=== PATIENT | male | born 1955 | race Caucasian/White ===

== ENCOUNTER 2021-06-11 02:35 | Observation (INO) | payer MEDICAID ==
[~2021-06-11] VITALS: Ht 182.9 cm; Wt 108.4 kg
[2021-06-11 02:42] VITALS: BP 138/78
--- NOTE | 2021-06-11 02:42 | NUR ---
COLE CHAPPELL VIA GURNEY TO BED 05.
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
[2021-06-11] MEDS ORDERED: KETOROLAC 30 MG/ML VIAL IVP ONE (02:50)
[2021-06-11] MEDS ORDERED: VANCOMYCIN 1,000 MG in DEXTROSE 5% 250 ML IV ONE (02:50)
[2021-06-11] MEDS ORDERED: NACL 0.9% 1,000 ML IV ONE (02:50)
--- NOTE | 2021-06-11 03:11 | NUR ---
JENNIFER SWAB COLLECTED FROM PT NARES AND HANDED TO EVELYN FROM LAB.
[2021-06-11 03:18] LABS: BASOPHILS # (AUTO) 0.1 K/uL (0.00-0.22); BASOPHILS % (AUTO) 1.1 % (0.0-2.0); EOSINOPHILS # (AUTO) 0.1 K/uL (0-0.4); EOSINOPHILS % (AUTO) 2.2 % (0.0-4.0); HEMATOCRIT 27.8 % (36-52); HEMOGLOBIN 9.7 g/dL (12.0-18.0); LYMPHOCYTES # (AUTO) 1.3 K/uL (2.0-11.5); LYMPHOCYTES % (AUTO) 24.3 % (20.5-51.1); MEAN CORPUSCULAR HEMOGLOBIN 38 pg (27-31); MEAN CORPUSCULAR HGB CONC 35 g/dL (33-37); MEAN CORPUSCULAR VOLUME 110.2 fL (80-94); MONOCYTES # (AUTO) 0.7 K/uL (0.8-1.0); MONOCYTES % (AUTO) 12.2 % (1.7-9.3); NEUTROPHILS # (AUTO) 3.3 K/uL (1.8-7.7); NEUTROPHILS % (AUTO) 60.2 % (42.2-75.2); PLATELET COUNT (AUTO) 129 K/uL (140-450); RED BLOOD CELL COUNT(AUTO) 2.53 MIL/uL (4.20-6.10); RED CELL DISTRIBUTION WIDTH 13.9 % (11.6-13.7); WHITE BLOOD COUNT (AUTO) 5.5 K/uL (4.8-10.8)
[2021-06-11] MEDS ORDERED: VANCOMYCIN 1,000 MG VIAL ONE (03:22)
[2021-06-11 03:35] LABS: ANION GAP 12.5 (8-16); CARBON DIOXIDE 27.7 mmol/L (21-32); CREATININE 1.2 mg/dL (0.6-1.3); POTASSIUM 4.2 mmol/L (3.5-5.1)
[2021-06-11 03:41] LABS: ALBUMIN 2.3 g/dL (3.4-5.0); TOTAL BILIRUBIN 2.6 mg/dL (0.0-1.0)
--- NOTE | 2021-06-11 04:45 | NUR ---
PT APPEARS TO BE RESTING W EYES CLOSED IN SUPINE POSITION. BREATHING EVEN AND UNLABORED. CONNECTED TO MONITOR. W VSS.
--- NOTE | 2021-06-11 04:50 | NUR ---
PT C/O R LEG PAIN. PAPID MADE AWARE.
--- NOTE | 2021-06-11 04:57 | NUR ---
David gomez in ED - 06/11/21 at 0458 by IRWIN pt ate crackers and drank juice. pt tolerated PO challenge well. Dr. Pratt made aware.
[2021-06-11] MEDS ORDERED: MORPHINE SULFATE 4 MG/ML SYR IVP ONE (05:05)
--- NOTE | 2021-06-11 06:37 | NUR ---
PT APPEARS TO BE RESTING W EYES CLOSED IN SUPINE POSITION. BREATHING EVEN AND UNLABORED. CONNECTED TO MONITOR. W VSS.
--- NOTE | 2021-06-11 07:18 | NUR ---
Pt report given to LIUDMILA STRATTON. Transfer of care at this time.
--- NOTE | 2021-06-11 07:19 | NUR ---
REPORT RECEIVED FROM COLLIN MORALES FOR PATIENT CONTINUITY OF CARE.
[2021-06-11] MEDS ORDERED: TOMOMETER 1 DEV DEV MC ONE (07:25)
--- NOTE | 2021-06-11 07:35 | NUR ---
REPOSITIONED PATIENT AND PROVIDED WITH WATER AT BEDSIDE, ALL PATIENT NEEDS MET AT THIS TIME. SAFETY PRECAUTIONS CONTINUED IN PLACE. WILL CONTINUE TO MONITOR.
--- NOTE | 2021-06-11 09:03 | NUR ---
PATIENT RESTING IN BED, RESPIRATIONS EVEN AND UNLABORED. SAFETY MEASURES CONTINUED IN PLACE, WILL CONTINUE TO MONITOR.
[2021-06-11] MEDS ORDERED: ONDANSETRON 4 MG/2 ML VIAL IVP PRN (09:15)
[2021-06-11] MEDS ORDERED: VANCOMYCIN PER PHARMACY MC PRN (09:15)
[2021-06-11] MEDS ORDERED: ACETAMINOPHEN 325 MG TAB PO PRN (09:15)
[2021-06-11] MEDS: NACL 0.9% 1,000 ML IV SCH ×2 (09:15→19:36)
[2021-06-11] MEDS ORDERED: cefTRIAXone 1,000 MG VIAL ONE (10:12)
--- NOTE | 2021-06-11 13:21 | NUR ---
Patient will be admitted to care of DR. SON. Admited to Med/Surg. Will go to room 111-B. Belongings list completed. Report to LISANDRA.
--- NOTE | 2021-06-11 13:34 | NUR ---
Patient noted to have existing wounds upon arrival to ER. Photos taken of wound and placed in chart. Physician informed.
--- NOTE | 2021-06-11 13:35 | NUR ---
Chart checked and completed. The patient's care was reviewed and supervised by Eda Sosa RN.
[2021-06-11] MEDS: VANCOMYCIN 750 MG in DEXTROSE 5% 250 ML IV SCH (15:53)
[2021-06-11] MEDS: MORPHINE SULFATE 4 MG/ML SYR IVP PRN ×2 (15:54→23:23)
--- NOTE | 2021-06-11 15:54 | NUR ---
PT WAS GIVEN MORPHINE FOR PAIN IN THE RIGHT LE AT A SCALE OF 9/10. BP WAS STABLE PRIOR TO ADMINISTRATION OF MEDICATION. WILL CONTINUE TO MONITOR.
[2021-06-11 16:00] VITALS: BP 122/66
--- NOTE | 2021-06-11 16:54 | NUR ---
PT ARRIVED VIA GURNEY AND WAS PLACED IN BED. PT IS UNABLE TO AMBULATE WITH STEADY GAIT. A&OX4. ON RA WITH BREATHING UNLABORED. SWELLING NOTED ON BILATERAL LOWER EXTREMITIES AND REDDENED WITH SCABS ON THE RIGHT LE. MED SURG PT. CONTINENT OF THE BOWEL AND BLADDER WITH URINAL AT BEDSIDE. IV IS INTACT AND IN PLACE. PT IS STABLE. VS ARE STABLE. Addendum: 06/11/21 at 1657 by Allison Chaney RN THIS NOTE WAS MEANT FOR [id number] NOT 1655.
--- NOTE | 2021-06-11 18:00 | NUR ---
PT IS ASLEEP. NO DISTRESS NOTED. IN SEMI FOWLERS POSITION WITH BREATHING UNLABORED. NO PAIN NOTED. IV IS PATENT AND INTACT. WILL CONTINUE TO MONITOR.
--- NOTE | 2021-06-11 19:12 | NUR ---
ENDORSED PT TO YARD SWITCH OPERATOR NURSE FOR CONTINUITY OF CARE. PT IS STABLE. PLAN OF CARE DISCUSSED.
[2021-06-11 20:03] VITALS: BP 105/55
[2021-06-11 23:24] VITALS: BP 126/91
[2021-06-12] MEDS: VANCOMYCIN 750 MG in DEXTROSE 5% 250 ML IV SCH ×2 (02:39→15:21)
[2021-06-12] MEDS: NACL 0.9% 1,000 ML IV SCH (05:08)
--- NOTE | 2021-06-12 07:05 | NUR ---
HANDOFF TO COLLIN FRY. DONTAE SERRANO RN
[2021-06-12 07:11] LABS: ANION GAP 9.8 (8-16); CARBON DIOXIDE 27.8 mmol/L (21-32); CREATININE 1.1 mg/dL (0.6-1.3); POTASSIUM 4.6 mmol/L (3.5-5.1)
--- NOTE | 2021-06-12 07:20 | NUR ---
RECEIVED BEDSIDE REPORT FROM ASPHALT MIXING MACHINE OPERATOR NURSE FOR CONTINUITY OF CARE. PT IS AWAKE AND ALERT. A&OX4. ON RA WITH BREATHING UNLABORED. CONTINENT OF THE BOWEL AND BLADDER. IV IS INTACT IN THE RIGHT AC 20 GAUGE INFUSING FLUIDS ORDERED. SKIN IS WARM AND DRY. SCABS ON THE RIGHT LOWER EXTREMITY, REDDENED AND SWOLLEN. PT IS STABLE. PLAN OF CARE DISCUSSED.
[2021-06-12 07:30] LABS: BASOPHILS % (AUTO) 0.8 % (0.0-2.0); EOSINOPHILS # (AUTO) 0.1 K/uL (0-0.4); EOSINOPHILS % (AUTO) 5.2 % (0.0-4.0); HEMATOCRIT 25.2 % (36-52); HEMOGLOBIN 8.7 g/dL (12.0-18.0); LYMPHOCYTES # (AUTO) 0.5 K/uL (2.0-11.5); LYMPHOCYTES % (AUTO) 24.3 % (20.5-51.1); MEAN CORPUSCULAR HEMOGLOBIN 38 pg (27-31); MEAN CORPUSCULAR HGB CONC 34 g/dL (33-37); MEAN CORPUSCULAR VOLUME 111.3 fL (80-94); MONOCYTES # (AUTO) 0.1 K/uL (0.8-1.0); MONOCYTES % (AUTO) 3.6 % (1.7-9.3); NEUTROPHILS # (AUTO) 1.2 K/uL (1.8-7.7); NEUTROPHILS % (AUTO) 66.1 % (42.2-75.2); PLATELET COUNT (AUTO) 79 K/uL (140-450); RED BLOOD CELL COUNT(AUTO) 2.27 MIL/uL (4.20-6.10); RED CELL DISTRIBUTION WIDTH 14.4 % (11.6-13.7)
[2021-06-12 07:54] LABS: WHITE BLOOD COUNT (AUTO) 1.9 K/uL (4.8-10.8)
[2021-06-12 08:00] VITALS: BP 126/76
[2021-06-12] MEDS: MORPHINE SULFATE 4 MG/ML SYR IVP PRN ×2 (09:19→14:35)
--- NOTE | 2021-06-12 09:19 | NUR ---
PT WAS GIVEN MORPHINE FOR PAIN AT A SCALE OF 10/10 IN THE RIGHT LE. BP WAS STABLE PRIOR TO ADMINISTRATION OF MEDICATION. WILL MONITOR PAIN.
--- NOTE | 2021-06-12 09:22 | NUR ---
PATIENT HAS BEEN SCREENED AND CATEGORIZED MODERATE NUTRITION RISK. PATIENT WILL BE SEEN WITHIN 3-5 DA[address] OF ADMISSION. [address]
--- NOTE | 2021-06-12 11:00 | NUR ---
PT IS STABLE. DENIES PAIN AT THIS TIME. NO DISTRESS NOTED. IN SEMI FOWLERS POSITION WITH CALL LIGHT IN REACH. WILL CONTINUE TO MONITOR.
--- NOTE | 2021-06-12 11:14 | NUR ---
INFORMED DR. SON OF CRITICAL LAB WBC 1.9 AND NEGATIVE FOR DVT ON RIGHT LE ULTRASOUND. HE PLACED TELEPHONE ORDER FOR PT EVAL AND SNF PLACEMENT. CALLED MINDY FROM PT AND SHE WILL EVALUATE NEW PT.
--- NOTE | 2021-06-12 11:19 | NUR ---
INFORMED DATABASE ADMINISTRATION ASSOCIATE, DANY, ABOUT SNF PLACEMENT REQUESTED BY DR. SON. SHE IS AWARE AND WILL WORK ON PLACEMENT.
--- NOTE | 2021-06-12 11:46 | NUR ---
DC PLANNING: CM RECEIVED A CALL FROM MELISSA SALDIVAR AT [facility]. SHE STATED THAT THE PATIENT IS HOMELESS AND WANTED TO KNOW THE DC PLAN. CM ENDORSED THAT DOCUMENTATION DOES NOT STATE THAT HE'S HOMELESS AND THAT CM WILL BE SPEAKING WITH HIM AND WILL CALL HER BACK REGARDING THIS. CM THEN RECEIVED A CALL FROM COLLIN FRY FOR THE PATIENT WHO STATES THAT THE PATIENT IS HOMELESS AND THAT THE ATTENDING MD WANTS HIM REFERRED TO SNF FOR CONTINUED IV ABX. P.T. EVAL PENDING, CM FAXED CLINICAL PACKET TO [facility] THEY WILL LOOK FOR A SNF FOR HIM, LISANDRA ALSO CONFIRMED THAT THE PATIENT IS UNVACCINATED. CM CALLED YARIEL BACK AND ENDORSED ABOVE. CM WILL FOLLOW UP WITH THE PATIENT AND WITH [facility] FOR SNF PLACEMENT.
--- NOTE | 2021-06-12 12:00 | NUR ---
ROUNDED ON PT. HE STATES HE IS OKAY AND DENIES PAIN. BREATHING IS UNLABORED. VS ARE STABLE. WILL CONTINUE TO MONITOR.
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
[2021-06-12] MEDS ORDERED: [UNRECOGNIZED DRUG - CODE] IV (13:37)
[2021-06-12 13:51] VITALS: BP 126/76
--- NOTE | 2021-06-12 14:35 | NUR ---
PT STATES HE HAS PAIN AT A SCALE OF 8/10 IN THE RIGHT LE. PT WAS GIVEN MORPHINE ORDERED FOR PAIN. BP WAS 109/51 PRIOR TO ADMINISTRATION OF MEDICATION. OTHER VITALS; O2 SAT IS 96%, RR 18, TEMP 97.5 F, AND HR 90. PT IS STABLE. DISCHARGE INSTRUCTIONS EXPLAINED AND INFORMED PT TRANSPORT SERVICE WILL BE HERE AT 4 PM TO [facility]SOLE [facility] TO TAKE TO [facility]. ALL MEDICATIONS AND SIDE EFFECTS EXPLAINED AND PT VERBALIZED UNDERSTANDING. PT IS STABLE. ID BAND REMOVED AND IV LEFT IN PLACE PER FACILITY FOR IV ANTIBIOTICS. WILL CONTINUE TO MONITOR UNTIL TRANSFER.
--- NOTE | 2021-06-12 15:15 | NUR ---
REPORT WAS GIVEN TO LIUDMILA GARCIA AT [facility] IN [place]. PHONE NUMBER [phone]. ALL QUESTIONS ANSWERED.
--- NOTE | 2021-06-12 18:00 | NUR ---
PT IS ASLEEP. AWOKE PT TO INFORM HIM DINNER WAS HERE AND THAT THE TRANSPORT WOULD BE HERE SHORTLY. PT STATES HE IS NOT FEELING GOOD AND DOESN'T WANT TO EAT RIGHT NOW. NO DISTRESS NOTED. PT IS BACK TO SLEEP.
--- NOTE | 2021-06-12 19:15 | NUR ---
ENDORSED PT TO STORE HOST NURSE FOR CONTINUITY OF CARE. PT IS STABLE. PLAN OF CARE DISCUSSED.
--- NOTE | 2021-06-12 19:30 | NUR ---
RECEIVED BEDSIDE REPORT FROM DAY SHIFT RN FOR CONTINUITY OF CARE. PT IS AWAKE ON RA. PT IS NOT IN ANY DISTRESS. BREATHING RHYTHMIC AND UNLABORED. IVF RUNNING PER MD ORDER. CALL LIGHT WITHIN REACH. ALL SAFETY MEASURES TAKEN. WILL CONTINUE TO MONITOR THE PT.
--- NOTE | 2021-06-12 19:40 | NUR ---
PT WAS TRANSPORTED VIA [facility]. PT IS STABLE.
== END 2021-06-12 19:45 ==
LOC: MED 02:35 → MMU 09:13 → MTU 13:05
PROVIDERS: ADMIT Hospitalist; ATTEND Hospitalist
DX: L03.115 Cellulitis of right lower limb (principal); Z20.822 Contact with and (suspected) exposure to COVID-19
CPT/HCPCS: 36415; 80048; 80053; 80202; 83735; 85025; 87040; 87081; 87426; 93971; 96361; 96365; 96366; 96367; 96375; 96376; 97163; 97530; 99284; G0378; J0696; J1885; J2270; J3370; J7060; Q0092

== ENCOUNTER 2021-07-09 06:00 | Emergency (ER) | payer MEDICAID, OTHER ==
[~2021-07-09] VITALS: Ht 180.3 cm; Wt 97.5 kg
[~2021-07-09 06:00] MED LIST: [UNRECOGNIZED DRUG - CODE] IV
[2021-07-09 06:09] VITALS: BP 152/71
--- NOTE | 2021-07-09 06:10 | NUR ---
Patient biba and taken to bed 9.
--- NOTE | 2021-07-09 06:15 | NUR ---
Patient biba from [facility] for c/o bilateral LE x 1 month. Per patient has hx of cellulitis of BLE and took antibiotics. Patient recently seen x 2 days ago at [facility] and was only given norco rx for pain management. patient able to move BLE and, sensitive to touch. PMH: dank marte
--- NOTE | 2021-07-09 06:25 | NUR ---
DARYL Do at bedside for medical evaluation.
[2021-07-09] MEDS ORDERED: ACETAMINOPHEN EXTRA STRENGTH 500 MG TAB PO ONE (06:30)
--- NOTE | 2021-07-09 06:51 | NUR ---
xray at bedside.
--- NOTE | 2021-07-09 07:16 | NUR ---
Report given to Rome POLANCO, transfer of care.
[2021-07-09] MEDS ORDERED: ACET-10509 PO (07:52)
[2021-07-09] MEDS ORDERED: IBUP-1842 PO (07:52)
--- NOTE | 2021-07-09 08:10 | NUR ---
PATIENT WANTED TO LEAVE, PATIENT STOOD UP GATHERED HIS BELONGINGS AND REQUESTED TO LEAVE. PATIENT INFORMED MEDICATION WAS SENT TO PHARMACY AND INFORMED IT WAS SENT TO THE [facility] ON FILE. PATIENT VERBALIZED UNDERSTANDING IMPORTANCE TO AQUIRE MEDICATION FROM PHARMACY SOON POSSIBLE.
--- NOTE | 2021-07-09 08:10 | NUR ---
Patient discharged with v/s stable. Written and verbal after care instructions given and explained. Patient alert, oriented and verbalized understanding of instructions. Ambulatory with steady gait. All questions addressed prior to discharge. ID band removed. Patient advised to follow up with PMD. Rx of VANCOMYCIN, TYLENOL, IBUPROFEN given. Patient educated on indication of medication including possible reaction and side effects. Opportunity to ask questions provided and answered.
[2021-07-09 08:42] VITALS: BP 152/71
== END 2021-07-09 08:10 | disposition home or self-care (01) ==
LOC: MED 06:00
DX: L03.115 Cellulitis of right lower limb (principal); M79.604 Pain in right leg
CPT/HCPCS: 73590; 73610; 93971; 99284; Q0092